=== PATIENT | male | born 1965 | race Two or more races ===

== ENCOUNTER 2019-03-24 01:22 | Observation (INO) | payer SELFPAY ==
[~2019-03-24] VITALS: Ht 188 cm; Wt 85.0 kg
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
--- NOTE | 2019-03-24 02:41 | NUR ---
PT BACK TO ROOM FROM CT.
--- NOTE | 2019-03-24 04:11 | NUR ---
AWAITING DR OWENS.
[2019-03-24] MEDS ORDERED: SODIUM CHLORIDE 0.9% 1,000ML IVBOLUS ONE (05:00)
[2019-03-24] MEDS ORDERED: SODIUM CHLORIDE FLUSH 10ML SYR IVF ONE (05:00)
--- NOTE | 2019-03-24 05:21 | NUR ---
NS INFUSING AT THIS TIME. PT TOLERATED WELL.
--- NOTE | 2019-03-24 05:54 | NUR ---
PT'S FAMILY MEMBER'S NUMBER [facility] [phone]
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
--- NOTE | 2019-03-24 06:52 | NUR ---
report given to heydi miller.
--- NOTE | 2019-03-24 07:04 | NUR ---
PT RESTING ON JUANJO CHICAS.
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
--- NOTE | 2019-03-24 07:50 | NUR ---
REPORT GIVEN TO RECEIVING TIFFANIE CARTER.
[2019-03-24 08:23] VITALS: BP 149/95
[2019-03-24 09:10] LABS: BASOPHILS # (AUTO) 0.03 x10^3/uL (0-0.1); BASOPHILS % (AUTO) 1 % (0-1); EOSINOPHILS # (AUTO) 0.12 x10^3/uL (0-0.4); EOSINOPHILS % (AUTO) 3 % (1-7); LYMPHOCYTES # (AUTO) 1.01 x10^3/uL (1-3.4); LYMPHOCYTES % (AUTO) 25 % (22-44); MD NO; MEAN CORPUSCULAR HEMOGLOBIN 30.1 pg (27.5-34.5); MEAN CORPUSCULAR HGB CONC 33.5 g/dL (33.2-36.2); MEAN CORPUSCULAR VOLUME 89.9 fL (81-97); MEAN PLATELET VOLUME 8.2 fL (7.4-10.4); MONOCYTES # (AUTO) 0.29 x10^3/uL (0.2-0.8); MONOCYTES % (AUTO) 7 % (2-9); NEUTROPHILS # (AUTO) 2.57 x10^3/uL (1.8-6.8); NEUTROPHILS % (AUTO) 64 % (42-75); PLATELET COUNT 233 x10^3/uL (130-400); RED BLOOD COUNT 5.21 x10^6/uL (4.38-5.82)
[2019-03-24 09:21] LABS: ANION GAP 10 mmol/L (5-15); CALCIUM 8.4 mg/dL (8.5-10.1); CHLORIDE 114 mmol/L (98-107); CREATININE 0.84 mg/dL (0.7-1.3)
[2019-03-24] MEDS ORDERED: SODIUM CHLORIDE 0.9% 1,000 ML IV SCH (10:18)
[2019-03-24] MEDS ORDERED: MUPIROCIN OINT 2%, 22GM ONE (12:13)
[2019-03-24] MEDS ORDERED: LIDOCAINE 1%-EPI 1:100K, 30ML ONE (12:13)
[2019-03-24] MEDS ORDERED: SUCCINYLCHOLINE 20 MG/ML, 10ML ONE (13:07)
[2019-03-24] MEDS ORDERED: ROCURONIUM 10MG/ML,5ML ONE (13:07)
[2019-03-24] MEDS ORDERED: MIDAZOLAM 1 MG/ML, 2ML ONE (13:08)
[2019-03-24] MEDS ORDERED: FENTANYL PF 250 MCG/5ML ONE (13:08)
[2019-03-24] MEDS ORDERED: LIDOCAINE 1%-EPI 1:100K, 20ML INFIL ONE (13:35)
[2019-03-24] MEDS ORDERED: PROPOFOL 10 MG/ML, 20ML ONE (13:39)
[2019-03-24] MEDS ORDERED: DEXAMETHASONE 4 MG/ML, 1ML ONE (13:39)
[2019-03-24] MEDS ORDERED: CEFAZOLIN 1,000 MG ONE (13:39)
[2019-03-24] MEDS ORDERED: ONDANSETRON 2MG/ML, 2ML ONE (13:39)
[2019-03-24] MEDS ORDERED: PROMETHAZINE 25 MG/ML, 1ML IV PRN (14:00)
[2019-03-24] MEDS ORDERED: ALBUTEROL/IPRATROPIUM 2.5MG/0.5MG, 3 ML NPPB PRN (14:00)
[2019-03-24] MEDS ORDERED: METOPROLOL 1 MG/ML, 5ML IV PRN (14:00)
[2019-03-24] MEDS ORDERED: FENTANYL PF 100 MCG/2ML IV PRN (14:00)
[2019-03-24] MEDS ORDERED: MIDAZOLAM 1 MG/ML, 2ML IV PRN (14:00)
[2019-03-24] MEDS ORDERED: OXYcodone 5 MG/5 ML ORAL.SOL UDC PO PRN (14:00)
[2019-03-24] MEDS ORDERED: hydrALAzine 20 MG/ML, 1ML IV PRN (14:00)
[2019-03-24] MEDS ORDERED: ACETAMINOPHEN 325 MG TABLET PO PRN (14:00)
[2019-03-24] MEDS ORDERED: MEPERIDINE/PF 25MG/0.5ML IVPush PRN (14:00)
[2019-03-24] MEDS ORDERED: HYDROmorphone 2 MG/ML, 1ML IVPush PRN (14:00)
[2019-03-24] MEDS ORDERED: SCOPOLAMINE PATCH, 1.5MG PATCH.TD72 TD PRN (14:00)
[2019-03-24] MEDS ORDERED: ONDANSETRON 2MG/ML, 2ML IV PRN (14:00)
[2019-03-24] MEDS ORDERED: OXYcodone 5 MG/5 ML ORAL.SOL UDC ONE (14:06)
[2019-03-24] MEDS ORDERED: FENTANYL PF 100 MCG/2ML ONE (14:09)
[2019-03-24] MEDS ORDERED: hydrALAzine 20 MG/ML, 1ML ONE (14:13)
== END 2019-03-24 18:13 | disposition home or self-care (01) ==
LOC: ED 03:43 → EDIP 06:57 → INTOOBSV 06:57 → 4NOR 07:58
PROVIDERS: ADMIT Internal Medicine; ATTEND Internal Medicine
DX: S02.40FA Zygomatic fracture, left side, initial encounter for closed fracture (principal); Y04.2XXA Assault by strike against or bumped into by another person, initial encounter; Y93.89 Activity, other specified; Y92.513 Shop (commercial) as the place of occurrence of the external cause; Y99.0 Civilian activity done for income or pay
CPT/HCPCS: 21356; 36415; 70450; 70486; 80048; 85025; 99284; G0378; J0330; J0360; J0690; J1100; J2250; J2405; J2704; J3010; J3490; J7030